=== PATIENT | male | born 1975 | race Caucasian/White ===

== ENCOUNTER 2017-07-02 01:24 | Emergency (ER) | payer SELFPAY ==
[2017-07-02] MEDS ORDERED: Proparacaine 0.5% Opth 15 ML BOT ONE (01:45)
[2017-07-02] MEDS ORDERED: Ondansetron ODT 4 MG TAB ONE (01:55)
[2017-07-02] MEDS ORDERED: HYDROcodone/Acetaminophen 10/325 mg Tablet ONE (02:16)
[2017-07-02] MEDS ORDERED: cefTRIAXone\\ROCEPHIN 1 GM VIAL ONE (02:16)
== END 2017-07-02 02:45 | disposition home or self-care (01) ==
LOC: MADERS 01:24
DX: T16.1XXA Foreign body in right ear, initial encounter (principal); S09.21XA Traumatic rupture of right ear drum, initial encounter; E78.5 Hyperlipidemia, unspecified; F17.210 Nicotine dependence, cigarettes, uncomplicated; X58.XXXA Exposure to other specified factors, initial encounter
CPT/HCPCS: 69200; 96372; J0696; J2001; Q0162